=== PATIENT | male | born 1965 | race Caucasian/White ===

== ENCOUNTER 2020-12-27 06:38 | Day surgery (SDC) | payer OTHER ==
[2020-12-26 11:13] LABS: COVID AG,FIA SOURCE NASOPHARYNGEAL
[~2020-12-27] VITALS: Ht 175.3 cm; Wt 86.4 kg
[~2020-12-27 06:38] MED LIST: SODIUM CHLORIDE 0.9% 1,000 ML ONE
[2020-12-27] MEDS ORDERED: ALBUTEROL SULFATE 2.5 MG/0.5 ML NEB SOLUTION NEB ONE (06:39)
[2020-12-27] MEDS ORDERED: LIDOCAINE 2% 30 ML JELLY TP ONE (06:39)
[2020-12-27] MEDS ORDERED: ACETYLCYSTEINE 10% 100 MG/ML 30 ML ORAL SOLUTION PO ONE (06:39)
[2020-12-27] MEDS ORDERED: SODIUM CHLORIDE 0.9% 1,000 ML IV ONE (07:00)
[2020-12-27] MEDS ORDERED: MIDAZOLAM HCL 2 MG/2 ML VIAL ONE (07:48)
[2020-12-27] MEDS ORDERED: FentaNYL CITRATE PF 100 MCG/2 ML VIAL ONE (07:49)
[2020-12-27] MEDS ORDERED: MethylPREDNISolone SOD SUCC 125 MG/2 ML VIAL IVP ONE (09:00)
[2020-12-27] MEDS ORDERED: MethylPREDNISolone SOD SUCC 125 MG/2 ML VIAL ONE (09:27)
[2020-12-27] MEDS ORDERED: CHOL500013 PO (09:43)
[2020-12-27] MEDS ORDERED: LEVO-72 PO (09:43)
[2020-12-27] MEDS ORDERED: MONT10TA32 PO (09:43)
[2020-12-27] MEDS ORDERED: PRED10TA3 PO (09:43)
[2020-12-27] MEDS ORDERED: FAMO40TA7 PO (09:43)
[2020-12-27] MEDS ORDERED: OXYGEN THERAPY IH SCH (20:00)
== END 2020-12-27 10:45 | disposition home or self-care (01) ==
LOC: SURGERY 06:38
PROVIDERS: ATTEND Internal Medicine Critical Care Medicine
DX: J38.4 Edema of larynx (principal); B37.0 Candidal stomatitis
CPT/HCPCS: 31623; 31624; 71045; 71250; 87015; 87070; 87101; 87205; 87206; 87220; 87426; 88108; 88184; 88185; 88312; 93005; C9803; J2250; J2930; J3010; J7030; J7613

== ENCOUNTER 2022-09-25 06:28 | Day surgery (SDC) | payer OTHER ==
[~2022-09-25] VITALS: Ht 167.6 cm; Wt 92.3 kg
[~2022-09-25 06:28] MED LIST changes: +ALBU8HFA IH; +CHOL500013 PO; +ESCI10 PO; +FAMO40TA7 PO; +FLUT12AE3 IH; +FLUT16SP NASAL; +MONT-40 PO; +PRED10TA3 PO; -SODIUM CHLORIDE 0.9% 1,000 ML ONE
[2022-09-25] MEDS ORDERED: BENZOCAINE 20% 50 MCG/SPRAY 57 GM TP ONE (06:29)
[2022-09-25] MEDS ORDERED: LIDOCAINE 4% 50 ML SOLUTION TP ONE (06:29)
[2022-09-25] MEDS ORDERED: LIDOCAINE 2% 11 ML JELLY TP ONE (06:29)
[2022-09-25 06:50] LABS: COVID AG,FIA SOURCE NASAL SWAB
[2022-09-25] MEDS ORDERED: SODIUM CHLORIDE 0.9% 1,000 ML IV ONE (07:00)
[2022-09-25] MEDS ORDERED: SODIUM CHLORIDE 0.9% 1,000 ML ONE (07:11)
[2022-09-25] MEDS ORDERED: MIDAZOLAM HCL 2 MG/2 ML VIAL ONE (07:54)
[2022-09-25] MEDS ORDERED: FentaNYL CITRATE PF 100 MCG/2 ML VIAL ONE (07:54)
[2022-09-25] MEDS ORDERED: MethylPREDNISolone SOD SUCC 125 MG/2 ML VIAL IVP ONE (09:30)
[2022-09-25] MEDS ORDERED: MethylPREDNISolone SOD SUCC 125 MG/2 ML VIAL ONE (09:35)
[2022-09-25] MEDS ORDERED: OXYGEN THERAPY IH SCH (20:00)
== END 2022-09-25 11:10 | disposition home or self-care (01) ==
LOC: SURGERY 06:28
PROVIDERS: ATTEND Internal Medicine Critical Care Medicine
DX: R05.3 Chronic cough (principal); R04.2 Hemoptysis; R91.1 Solitary pulmonary nodule; J39.8 Other specified diseases of upper respiratory tract; Z88.8 Allergy status to other drugs, medicaments and biological substances; Z79.899 Other long term (current) drug therapy; Z98.890 Other specified postprocedural states; Z20.822 Contact with and (suspected) exposure to COVID-19
CPT/HCPCS: 31623; 88112; 87206; 87101; 87220; 87070; 88305; 31624; 71045; 87015; 87426; J3010; J2250; J2930; Q9967; J7030; C9803; Z7610

== ENCOUNTER → 2023-07-30 | Day surgery (SDC) | payer OTHER ==
[~2023-07-30] VITALS: Ht 162.6 cm; Wt 94.5 kg
[~2023-07-30] MED LIST changes: +ALBU18HF12 IH; -ALBU8HFA IH; +BENZOCAINE 20% 50 MCG/SPRAY 57 GM TP ONE; +FentaNYL CITRATE PF 100 MCG/2 ML VIAL ONE; +LIDOCAINE 2% 11 ML JELLY TP ONE; +LIDOCAINE 4% 50 ML SOLUTION TP ONE; +MIDAZOLAM HCL 2 MG/2 ML VIAL ONE; +MethylPREDNISolone SOD SUCC 125 MG/2 ML VIAL IVP ONE; +MethylPREDNISolone SOD SUCC 125 MG/2 ML VIAL ONE; -PRED10TA3 PO; +SODIUM CHLORIDE 0.9% 1,000 ML IV ONE
[2023-07-30 09:43] VITALS: PULSE 69; RESP 18; O2SAT 96
== END | disposition home or self-care (01) ==
LOC: SURGERY 06:56
PROVIDERS: ATTEND Internal Medicine Critical Care Medicine
DX: R05.3 Chronic cough (principal); R91.1 Solitary pulmonary nodule; J98.8 Other specified respiratory disorders; J84.9 Interstitial pulmonary disease, unspecified; Z88.0 Allergy status to penicillin; Z88.8 Allergy status to other drugs, medicaments and biological substances
CPT/HCPCS: 87206; 87101; 87220; 87070; 31623; 31624; 71045; 87015; 99152; J3010; J2250; J2930; Q9967; 88112; Z7610

== ENCOUNTER 2025-08-24 07:10 | Day surgery (SDC) | payer OTHER ==
[~2025-08-24] VITALS: Ht 167.6 cm; Wt 99.1 kg
[~2025-08-24 07:10] MED LIST changes: -BENZOCAINE 20% 50 MCG/SPRAY 57 GM TP ONE; -FentaNYL CITRATE PF 100 MCG/2 ML VIAL ONE; -LIDOCAINE 2% 11 ML JELLY TP ONE; -LIDOCAINE 4% 50 ML SOLUTION TP ONE; -MIDAZOLAM HCL 2 MG/2 ML VIAL ONE; -MethylPREDNISolone SOD SUCC 125 MG/2 ML VIAL IVP ONE; -MethylPREDNISolone SOD SUCC 125 MG/2 ML VIAL ONE; +SODIUM CHLORIDE 0.9% 1,000 ML ONE
[2025-08-24] MEDS ORDERED: MIDAZOLAM HCL 2 MG/2 ML VIAL ONE (08:25)
[2025-08-24] MEDS ORDERED: FentaNYL CITRATE PF 100 MCG/2 ML VIAL ONE (08:25)
[2025-08-24 10:05] VITALS: PULSE 60; RESP 18; O2SAT 99
[2025-08-24] MEDS ORDERED: LIDOCAINE 4% 50 ML SOLUTION ONE (12:00)
[2025-08-24] MEDS ORDERED: LIDOCAINE 2% 11 ML JELLY ONE (12:00)
[2025-08-24] MEDS ORDERED: ALBUTEROL SULFATE 2.5 MG/0.5 ML NEB SOLUTION NEB ONE (12:00)
[2025-08-24] MEDS ORDERED: BENZOCAINE 20% 50 MCG/SPRAY 57 GM ONE (12:00)
== END 2025-08-24 14:30 | disposition home or self-care (01) ==
LOC: SURGERY 07:10
PROVIDERS: ATTEND Internal Medicine Critical Care Medicine
DX: J38.4 Edema of larynx (principal); B37.0 Candidal stomatitis; J47.9 Bronchiectasis, uncomplicated; R05.3 Chronic cough; R06.2 Wheezing
CPT/HCPCS: 31623; 87206; 87101; 87220; 87070; 31624; 71045; 87015; J3010; J2250; J2919; J7030; 88108; J7613; Z7610